=== PATIENT | female | born 1980 | race Hispanic/Latino ===

== ENCOUNTER 2020-08-11 09:53 | Emergency (ER) | payer OTHER ==
[2020-08-11 10:24] LABS: #Basophils 0.1 thou/uL (0.0-0.2); #Eosinphils 0.2 thou/uL (0.0-0.7); #Lymphocytes 1.2 thou/uL (1.20-3.40); #Monocytes 0.5 thou/uL (0.11-0.59); %Basophils 0.7 % (0.0-1.0); %Eosinophils 2.5 % (0.0-10.0); %Lymphocytes 16.7 % (21.0-51.0); %Monocytes 6.9 % (0.0-10.0); %Neutrophils 73.2 % (42.0-75.0); Hemoglobin 12.5 g/dL (12.0-16.0); Mean Corpuscular HGB CONC 32.3 g/dL (32.0-36.0); Mean Corpuscular Hemoglobin 26.3 pg (27.0-31.0); Mean Corpuscular Volume 81.6 fL (78.0-98.0); Mean Platelet Volume 8.4 fL (7.4-10.4); Platelet Count 270 thou/uL (130-400); RBC Distribution Width 17.9 % (11.5-14.5); Red Blood Cell (RBC) Count 4.73 mill/uL (4.20-5.40); White Blood Cell (WBC) Count 6.9 thou/uL (4.8-10.8)
[2020-08-11 11:04] LABS: Bilirubin Negative (Negative); Blood, Urine Large (Negative); Glucose, Urine (Dipstick) Negative (Negative)
[2020-08-11 11:05] LABS: Clarity Turbid (Clear)
[2020-08-11 11:06] LABS: Leukocyte Unable to Interpret (Negative)
[2020-08-11 11:14] LABS: Ketone, Urine Negative (Negative); Nitrite Negative (Negative); Protein, Urine (Dipstick) 100 mg/dL (Neg-Trace)
[2020-08-11 11:15] LABS: Urobilinogen 0.2 mg/dL (Less than 2)
[2020-08-11 11:23] LABS: Bacteria/HPF None Seen HPF (None Seen); RBC/HPF Greater than 50 HPF (0-3); Squamous Epithelial 0-3 HPF (0-3)
--- NOTE | 2020-08-11 11:25 | ULT ---
TRANSABDOMINAL TRANSVAGINAL PELVIC ULTRASOUND DATE:: 08/11/2020 10:35 AM CLINICAL HISTORY: 5 weeks with vaginal bleeding. COMPARISON: None. TECHNIQUE: Grayscale, color Doppler and spectral Doppler images were obtained of the pelvis utilizing a transabdominal and transvaginal approach FINDINGS: UTERUS: Size: 9.3 x 4.3 x 6.7 Mass: None Cervix: Within normal limits Endometrial Thickness: 9.3 mm. RIGHT OVARY: 3.2 x 2.8 x 2.7 cm. Mass: None. Flow: Normal LEFT OVARY: 2.6 x 1.9 x 4.5 cm. Mass: There are 2 separate follicular cyst within the left ovary. The largest measuring 2.1 cm.. Flow: Normal CUL-DE-SAC: Minimal free fluid IMPRESSION: No acute sonographic abnormality demonstrated. No overt evidence to suggest presence of retained prod ucts of conception.
[2020-08-11 12:01] LABS: BHCG - Serum Negative (NEGATIVE); Pregs Control Background? CLEAR/WHITE (CLR/WHITE); Pregs Control Bar Appear? YES (CONTROL BAR)
== END 2020-08-11 12:25 | disposition home or self-care (01) ==
LOC: ERS 09:53
DX: N93.9 Abnormal uterine and vaginal bleeding, unspecified (principal); D64.9 Anemia, unspecified; Z79.899 Other long term (current) drug therapy
CPT/HCPCS: 36415; 76856; 81003; 81015; 84703; 85025; 86850; 86900; 86901; 87086; 94760